=== PATIENT | female | born 1930 | race Caucasian/White ===

== ENCOUNTER 2016-11-09 06:44 | Inpatient (IN) | payer OTHER, BC ==
[~2016-11-09] VITALS: Ht 167.6 cm; Wt 55.1 kg
[~2016-11-09 06:44] MED LIST: ADVAIR 250/501 DISK IH; AMARYL2 MG PO; ASCORBIC ACID500 M3 PO; ATROVENT H200 INHALA IH; CENTRUM SILVER1 EAC3 PO; CLARITIN,ALAVAR10 MG PO; DAILY VITE1 EAC1 PO; FERROUS SULFAT325 MG PO; FLOMAX0.4 MG PO; GLUCOSAMINE &1 EAC1 PO; HIPREX1 GM PO; NEURONTIN300 MG PO; PROBIOTIC1 EAC1 PO; PROTONIX40 MG PO; QNASL8.7 GM BOTH NARES; SINGULAIR10 MG PO; VENTOLIN HFA18 GM IH; VITAMIN C500 M1 PO; VITAMIN D31000 UNIT PO
[2016-11-09 07:47] LABS: POINT-OF-CARE METER ID UU14174212
[2016-11-09 07:48] VITALS: BP 131/74
[2016-11-09 14:28] LABS: HEMATOCRIT 38.3 % (36.0-46.0); MCH 28.2 PG (29.0-34.0); MCHC 32.1 G/DL (30.0-36.0); MCV 87.8 FL (83-99); MEAN PLAT.VOLUME 10.1 uM^3 (9.5-12.4); PLATELET COUNT 296 K/uL (156-360); RBC DIS.WIDTH-CV 13.3 % (11.8-14.6); RBC DIS.WIDTH-SD 43.3 % (39-53); RED BLOOD COUNT 4.36 M/uL (3.80-5.20)
[2016-11-09 14:29] LABS: WHITE BLOOD COUNT 11.9 K/uL (4.1-10.2)
[2016-11-09 15:30] VITALS: BP 143/63
[2016-11-09] MEDS ORDERED: IPRATROPIUM BRO30 ML BOTH NARES (16:16)
[2016-11-09 19:59] VITALS: BP 126/61
[2016-11-09 23:49] VITALS: BP 124/61
[2016-11-10 04:00] VITALS: BP 137/63
[2016-11-10 06:15] LABS: HEMATOCRIT 35.4 % (36.0-46.0); MCV 86.3 FL (83-99)
[2016-11-10 06:52] LABS: ANION GAP 8 MEQ/L (2-14); CHLORIDE 98 MEQ/L (99-109); GFR ESTIMATE (CALCULATED) > 59 mL/min/; GLUCOSE 144 mg/dL (70-99); SAMPLE HEMOLYSIS CHECK 0; SAMPLE ICTERIC CHECK 0; SAMPLE LIPEMIA CHECK 0; SODIUM 132 MEQ/L (136-147); UREA NITROGEN (BUN) 10 mg/dL (9-23)
[2016-11-10 08:03] VITALS: BP 122/58
[2016-11-10 11:32] VITALS: BP 126/58
[2016-11-10 15:35] VITALS: BP 124/58
[2016-11-10 19:57] VITALS: BP 122/59
[2016-11-11 00:02] VITALS: BP 111/55
[2016-11-11 04:00] VITALS: BP 132/59
[2016-11-11 05:25] LABS: HEMATOCRIT 32.3 % (36.0-46.0); MCV 85.7 FL (83-99)
[2016-11-11 05:58] LABS: ANION GAP 4 MEQ/L (2-14); CHLORIDE 102 MEQ/L (99-109); GFR ESTIMATE (CALCULATED) > 59 mL/min/; GLUCOSE 132 mg/dL (70-99); POTASSIUM 3.9 MEQ/L (3.7-5.4); SAMPLE HEMOLYSIS CHECK 0; SAMPLE ICTERIC CHECK 0; SAMPLE LIPEMIA CHECK 0; SODIUM 135 MEQ/L (136-147); UREA NITROGEN (BUN) 8 mg/dL (9-23)
[2016-11-11] MEDS ORDERED: HYDROCODON-ACE1 EAC7 PO (08:03)
[2016-11-11] MEDS ORDERED: SENNA PLUS TAB1 EACH PO (08:03)
[2016-11-11] MEDS ORDERED: LOVENOX40 MG/0.4 SC (08:03)
[2016-11-11] MEDS ORDERED: CELECOXIB200 MG PO (08:03)
[2016-11-11 08:12] VITALS: BP 117/54
[2016-11-11 11:31] VITALS: BP 102/51
[2016-11-11 15:33] VITALS: BP 115/53
[2016-11-11] MEDS ORDERED: PERCOCET 5/31 TABLET PO (17:11)
[2016-11-11] MEDS ORDERED: LIDODERM 5% P1 PATCH TD (17:12)
[2016-11-11] MEDS ORDERED: ZOFRAN4 MG PO (17:12)
== END 2016-11-11 16:44 | DRG 470 ==
LOC: 2SOUTH 06:44 → 3WEST 12:22
PROVIDERS: Orthopaedic Surgery; Physician Assistant
PROC: 0SRD0J9 Replacement of Left Knee Joint with Synthetic Substitute, Cemented, Open Approach (ICD-10-PCS; principal; 2016-11-09)
DX: M17.12 Unilateral primary osteoarthritis, left knee (principal); J44.9 Chronic obstructive pulmonary disease, unspecified; K21.9 Gastro-esophageal reflux disease without esophagitis; M06.9 Rheumatoid arthritis, unspecified; Z88.0 Allergy status to penicillin; Z88.1 Allergy status to other antibiotic agents; Z88.3 Allergy status to other anti-infective agents
CPT/HCPCS: 73560; 80048; 82948; 85014; 85018; 85027; 93005; 94640; 94640 76; J1650; J2250; J2405; J2765; J3010; J7050

== ENCOUNTER 2016-11-11 10:23 | Inpatient (IN) | payer OTHER, BC ==
[~2016-11-11] VITALS: Ht 167.6 cm; Wt 54.3 kg
[~2016-11-11 10:23] MED LIST changes: +CELECOXIB200 MG PO; +HYDROCODON-ACE1 EAC7 PO; +IPRATROPIUM BRO30 ML BOTH NARES; +LOVENOX40 MG/0.4 SC; +SENNA PLUS TAB1 EACH PO
[2016-11-11 16:59] VITALS: BP 115/53
[2016-11-11] MEDS ORDERED: PERCOCET 5/31 TABLET PO (17:11)
[2016-11-11] MEDS ORDERED: LIDODERM 5% P1 PATCH TD (17:12)
[2016-11-11] MEDS ORDERED: ZOFRAN4 MG PO (17:12)
[2016-11-11 20:00] LABS: HEMATOCRIT 33.3 % (36.0-46.0); MCH 28.2 PG (29.0-34.0); MCHC 32.4 G/DL (30.0-36.0); MCV 86.9 FL (83-99); MEAN PLAT.VOLUME 10.4 uM^3 (9.5-12.4); PLATELET COUNT 247 K/uL (156-360); RBC DIS.WIDTH-CV 13.6 % (11.8-14.6); RBC DIS.WIDTH-SD 42.5 % (39-53); RED BLOOD COUNT 3.83 M/uL (3.80-5.20); WHITE BLOOD COUNT 8.7 K/uL (4.1-10.2)
[2016-11-11 20:20] LABS: ALKALINE PHOSPHATASE 114 IU/L (3-129); ANION GAP 5 MEQ/L (2-14); CHLORIDE 100 MEQ/L (99-109); GFR ESTIMATE (CALCULATED) > 59 mL/min/; GLUCOSE 156 mg/dL (70-99); SAMPLE HEMOLYSIS CHECK 0; SAMPLE ICTERIC CHECK 0; SAMPLE LIPEMIA CHECK 0; SODIUM 134 MEQ/L (136-147); TOTAL BILIRUBIN 0.4 MG/DL (0.0-1.0); UREA NITROGEN (BUN) 12 mg/dL (9-23)
[2016-11-12 00:19] VITALS: BP 145/65
[2016-11-12 05:41] VITALS: BP 138/60
[2016-11-13 05:40] VITALS: BP 125/58
[2016-11-13] MEDS ORDERED: MILK OF MAGNESI10 ML PO (14:14)
[2016-11-13] MEDS ORDERED: HYDROCODON-ACE1 EAC7 PO (14:14)
[2016-11-13] MEDS ORDERED: CELECOXIB200 MG PO (14:14)
[2016-11-13] MEDS ORDERED: LOVENOX40 MG/0.4 SC (14:14)
[2016-11-13 15:26] VITALS: BP 126/70
[2016-11-14 06:07] VITALS: BP 136/63
[2016-11-14 06:24] LABS: EOSINOPHIL (%) 8.1 % (0-5); EOSINOPHIL COUNT 0.5 K/uL (0-0.3); HEMATOCRIT 32.9 % (36.0-46.0); IMMATURE GRANULOCYTE (%) 0.3 % (0.0-0.7); INSTRUMENT ABS NEUTROPHIL CT 4.4 K/uL; MCH 27.7 PG (29.0-34.0); MCHC 31.6 G/DL (30.0-36.0); MCV 87.7 FL (83-99); MONOCYTE (%) 6.8 % (3-12); MONOCYTE COUNT 0.4 K/uL (0-0.8); NEUTROPHIL (%) 69.3 % (45-76); NEUTROPHIL COUNT 4.4 K/uL (1.8-6.4); RBC DIS.WIDTH-CV 14.2 % (11.8-14.6); RBC DIS.WIDTH-SD 45.7 % (39-53); RED BLOOD COUNT 3.75 M/uL (3.80-5.20); WHITE BLOOD COUNT 6.3 K/uL (4.1-10.2)
[2016-11-14 06:26] LABS: PLATELET COUNT 325 K/uL (156-360)
[2016-11-14 06:38] LABS: ANION GAP 7 MEQ/L (2-14); CHLORIDE 102 MEQ/L (99-109); GFR ESTIMATE (CALCULATED) > 59 mL/min/; POTASSIUM 4.1 MEQ/L (3.7-5.4); SAMPLE HEMOLYSIS CHECK 0; SAMPLE ICTERIC CHECK 0; SAMPLE LIPEMIA CHECK 0; SODIUM 138 MEQ/L (136-147); UREA NITROGEN (BUN) 16 mg/dL (9-23)
[2016-11-14 06:44] LABS: ALKALINE PHOSPHATASE 144 IU/L (3-129); GLUCOSE 111 mg/dL (70-99); TOTAL BILIRUBIN 0.8 MG/DL (0.0-1.0)
[2016-11-14 16:07] VITALS: BP 120/57
[2016-11-14 16:09] VITALS: BP 120/57
[2016-11-15 05:44] VITALS: BP 119/59
== END 2016-11-15 13:54 | disposition home health service (06) | DRG 561 ==
LOC: 3WEST 10:23
PROVIDERS: Psychiatry & Neurology Neurology
PROC: F07M0ZZ Range of Motion and Joint Mobility Treatment of Musculoskeletal System - Whole Body (ICD-10-PCS; principal; 2016-11-11)
DX: Z47.1 Aftercare following joint replacement surgery (principal); Z96.652 Presence of left artificial knee joint; R26.2 Difficulty in walking, not elsewhere classified; I10 Essential (primary) hypertension; J44.9 Chronic obstructive pulmonary disease, unspecified; M19.90 Unspecified osteoarthritis, unspecified site; M06.9 Rheumatoid arthritis, unspecified; M40.209 Unspecified kyphosis, site unspecified; Z88.1 Allergy status to other antibiotic agents; Z88.3 Allergy status to other anti-infective agents; Z88.0 Allergy status to penicillin
CPT/HCPCS: 80053; 85025; 85027; 93971; 94640; 94640 76; 97110 GO; 97530 GP; J1650

== ENCOUNTER 2017-08-30 22:02 | Inpatient (IN) | payer OTHER, BC ==
[~2017-08-30] VITALS: Ht 167.6 cm; Wt 54.2 kg
[~2017-08-30 22:02] MED LIST changes: +ALEVE220 MG PO; +CALCIUM 500 MG1 EACH PO; +CRANBERRY TABL1 EACH PO; +LIDODERM 5% P1 PATCH TD; +MILK OF MAGNESI10 ML PO; +PERCOCET 5/31 TABLET PO; +PROBIOTIC1 EAC2 PO; +STOOL SOFTENER100 M1 PO; +ZOFRAN4 MG PO
[2017-08-31 05:45] VITALS: BP 152/67
[2017-08-31 09:48] LABS: HEMATOCRIT 34.5 % (36.0-46.0); HEMOGLOBIN 11.1 G/DL (11.9-15.5); MCH 28.9 PG (29.0-34.0); MCHC 32.2 G/DL (30.0-36.0); MCV 89.8 FL (83-99); PLATELET COUNT 235 K/uL (156-360); RBC DIS.WIDTH-CV 13.9 % (11.8-14.6); RBC DIS.WIDTH-SD 45.4 % (39-53); RED BLOOD COUNT 3.84 M/uL (3.80-5.20); WHITE BLOOD COUNT 11.8 K/uL (4.1-10.2)
[2017-08-31 10:19] VITALS: BP 129/86
[2017-08-31 20:08] VITALS: BP 119/73
[2017-09-01 00:15] VITALS: BP 133/64
[2017-09-01 04:21] VITALS: BP 130/59
[2017-09-01 06:18] LABS: HEMATOCRIT 32.6 % (36.0-46.0); HEMOGLOBIN 10.8 G/DL (11.9-15.5); MCV 86.7 FL (83-99)
[2017-09-01 06:52] LABS: CHLORIDE 97 MEQ/L (99-109); CREATININE 0.5 MG/DL (0.6-1.3); GFR ESTIMATE (CALCULATED) > 59 mL/min/; GLUCOSE 152 mg/dL (70-99); POTASSIUM 3.9 MEQ/L (3.7-5.4); SODIUM 131 MEQ/L (136-147); UREA NITROGEN (BUN) 12 mg/dL (9-23)
[2017-09-01 08:00] VITALS: BP 139/64
[2017-09-01 12:19] VITALS: BP 129/59
[2017-09-01 16:16] VITALS: BP 109/54
[2017-09-01 20:11] VITALS: BP 116/49
[2017-09-02 00:10] VITALS: BP 108/54
[2017-09-02 04:00] VITALS: BP 110/52
[2017-09-02 05:33] LABS: HEMATOCRIT 32.5 % (36.0-46.0); HEMOGLOBIN 10.7 G/DL (11.9-15.5); MCV 86.4 FL (83-99)
[2017-09-02 05:57] LABS: CHLORIDE 102 MEQ/L (99-109); CREATININE 0.4 MG/DL (0.6-1.3); GFR ESTIMATE (CALCULATED) > 59 mL/min/; GLUCOSE 129 mg/dL (70-99); POTASSIUM 3.7 MEQ/L (3.7-5.4); SODIUM 136 MEQ/L (136-147); UREA NITROGEN (BUN) 11 mg/dL (9-23)
[2017-09-02 08:10] VITALS: BP 126/58
[2017-09-02] MEDS ORDERED: LOVENOX40 MG/0.4 SC (11:23)
[2017-09-02] MEDS ORDERED: ENDOCET 5-3251 EACH PO (11:23)
[2017-09-02 12:04] VITALS: BP 127/62
[2017-09-02] MEDS ORDERED: CELEBREX200 MG PO (17:03)
[2017-09-02] MEDS ORDERED: SENNA-DOCUSATE1 EAC1 PO (17:05)
[2017-09-02] MEDS ORDERED: PERCOCET 10/1 TABLET PO (17:06)
[2017-09-02] MEDS ORDERED: PERCOCET 5/31 TABLET PO (17:07)
[2017-09-02] MEDS ORDERED: REGLAN10 MG PO (17:08)
[2017-09-02] MEDS ORDERED: SALONPAS GEL-P1 EAC1 TD ×2 (17:10→17:11)
[2017-09-02] MEDS ORDERED: ZOFRAN4 MG PO (17:12)
== END 2017-09-02 15:30 | DRG 470 ==
LOC: ENRESERV 22:02 → 2SOUTH 08-31 05:15 → 3WEST 08-31 09:59 → 2SOUTH 08-31 10:29 → 3WEST 09-02 15:30
PROVIDERS: Orthopaedic Surgery; Physician Assistant
PROC: 0SRC0J9 Replacement of Right Knee Joint with Synthetic Substitute, Cemented, Open Approach (ICD-10-PCS; principal; 2017-08-31)
DX: M17.11 Unilateral primary osteoarthritis, right knee (principal); E87.1 Hypo-osmolality and hyponatremia; J44.9 Chronic obstructive pulmonary disease, unspecified; M06.9 Rheumatoid arthritis, unspecified; E11.43 Type 2 diabetes mellitus with diabetic autonomic (poly)neuropathy; K31.84 Gastroparesis; E78.2 Mixed hyperlipidemia; Z96.652 Presence of left artificial knee joint; Z87.440 Personal history of urinary (tract) infections
CPT/HCPCS: 73560; 80048; 85014; 85018; 85027; 85730; 94640; 94640 76; 99202; C1713; J0131; J1100; J1170; J1650; J2250; J2405; J2795; J7050

== ENCOUNTER 2017-09-02 08:20 | Inpatient (IN) | payer OTHER, BC ==
[~2017-09-02] VITALS: Ht 167.6 cm; Wt 58.7 kg
[2017-09-02] MEDS ORDERED: LOVENOX40 MG/0.4 SC (11:23)
[2017-09-02] MEDS ORDERED: ENDOCET 5-3251 EACH PO (11:23)
[2017-09-02 15:53] VITALS: BP 124/58
[2017-09-02] MEDS ORDERED: CELEBREX200 MG PO (17:03)
[2017-09-02] MEDS ORDERED: SENNA-DOCUSATE1 EAC1 PO (17:05)
[2017-09-02] MEDS ORDERED: PERCOCET 10/1 TABLET PO (17:06)
[2017-09-02] MEDS ORDERED: PERCOCET 5/31 TABLET PO (17:07)
[2017-09-02] MEDS ORDERED: REGLAN10 MG PO (17:08)
[2017-09-02] MEDS ORDERED: SALONPAS GEL-P1 EAC1 TD ×2 (17:10→17:11)
[2017-09-02] MEDS ORDERED: ZOFRAN4 MG PO (17:12)
[2017-09-03 04:49] VITALS: BP 118/56
[2017-09-03 05:44] LABS: HEMATOCRIT 31.9 % (36.0-46.0); HEMOGLOBIN 10.5 G/DL (11.9-15.5); MCH 28.9 PG (29.0-34.0); MCHC 32.9 G/DL (30.0-36.0); MCV 87.9 FL (83-99); PLATELET COUNT 258 K/uL (156-360); RBC DIS.WIDTH-CV 14.1 % (11.8-14.6); RBC DIS.WIDTH-SD 45.4 % (39-53); RED BLOOD COUNT 3.63 M/uL (3.80-5.20); WHITE BLOOD COUNT 7.1 K/uL (4.1-10.2)
[2017-09-03 06:14] LABS: ALBUMIN 2.8 G/DL (3.2-4.8); ALKALINE PHOSPHATASE 115 IU/L (3-129); ALT (GPT) 27 IU/L (3-49); AST (GOT) 19 IU/L (2-34); CHLORIDE 103 MEQ/L (99-109); CREATININE 0.5 MG/DL (0.6-1.3); GFR ESTIMATE (CALCULATED) > 59 mL/min/; GLUCOSE 134 mg/dL (70-99); POTASSIUM 3.8 MEQ/L (3.7-5.4); SODIUM 140 MEQ/L (136-147); TOTAL BILIRUBIN 0.5 MG/DL (0.0-1.0); TOTAL PROTEIN 5.4 G/DL (6.4-8.3); UREA NITROGEN (BUN) 13 mg/dL (9-23)
[2017-09-03 15:34] VITALS: BP 123/57
[2017-09-04 06:06] VITALS: BP 133/63
[2017-09-04 15:00] VITALS: BP 121/58
[2017-09-05 04:17] VITALS: BP 130/59
[2017-09-05 15:11] VITALS: BP 136/63
[2017-09-06 05:24] VITALS: BP 133/60
[2017-09-06 05:53] LABS: HEMATOCRIT 34.5 % (36.0-46.0); HEMOGLOBIN 11.2 G/DL (11.9-15.5); MCH 28.4 PG (29.0-34.0); MCHC 32.5 G/DL (30.0-36.0); MCV 87.3 FL (83-99); PLATELET COUNT 328 K/uL (156-360); RBC DIS.WIDTH-CV 14.1 % (11.8-14.6); RBC DIS.WIDTH-SD 45.6 % (39-53); RED BLOOD COUNT 3.95 M/uL (3.80-5.20)
[2017-09-06 07:11] LABS: ALKALINE PHOSPHATASE 131 IU/L (3-129); ALT (GPT) 26 IU/L (3-49); AST (GOT) 23 IU/L (2-34); CHLORIDE 102 MEQ/L (99-109); CREATININE 0.5 MG/DL (0.6-1.3); GFR ESTIMATE (CALCULATED) > 59 mL/min/; GLUCOSE 122 mg/dL (70-99); POTASSIUM 4.5 MEQ/L (3.7-5.4); SODIUM 139 MEQ/L (136-147); TOTAL BILIRUBIN 0.5 MG/DL (0.0-1.0); TOTAL PROTEIN 5.7 G/DL (6.4-8.3); UREA NITROGEN (BUN) 15 mg/dL (9-23)
[2017-09-06 15:00] VITALS: BP 138/62
[2017-09-07 05:39] VITALS: BP 141/65
[2017-09-07] MEDS ORDERED: CELEBREX200 MG PO (08:57)
== END 2017-09-07 11:14 | disposition home health service (06) | DRG 560 ==
LOC: 3WEST 08:20
PROVIDERS: Physical Medicine & Rehabilitation Pain Medicine
PROC: F07M0ZZ Range of Motion and Joint Mobility Treatment of Musculoskeletal System - Whole Body (ICD-10-PCS; principal; 2017-09-02)
DX: Z47.1 Aftercare following joint replacement surgery (principal); R26.2 Difficulty in walking, not elsewhere classified; G89.18 Other acute postprocedural pain; D62 Acute posthemorrhagic anemia; I10 Essential (primary) hypertension; J44.9 Chronic obstructive pulmonary disease, unspecified; M06.9 Rheumatoid arthritis, unspecified; M40.209 Unspecified kyphosis, site unspecified; Z96.653 Presence of artificial knee joint, bilateral; Z88.0 Allergy status to penicillin; Z88.1 Allergy status to other antibiotic agents
CPT/HCPCS: 80053; 85027; 94640; 94640 76; 97110 GO; 97530 GP; 99202; J1650

== ENCOUNTER → 2018-03-28 | Outpatient (CLI) | payer OTHER, BC ==
[~2018-03-28] MED LIST changes: +CELEBREX200 MG PO; +ENDOCET 5-3251 EACH PO; +PERCOCET 10/1 TABLET PO; +REGLAN10 MG PO; +SALONPAS GEL-P1 EAC1 TD; +SENNA-DOCUSATE1 EAC1 PO
== END | disposition home or self-care (01) ==
LOC: NUC 08:44
DX: M41.85 Other forms of scoliosis, thoracolumbar region (principal); M47.896 Other spondylosis, lumbar region; M19.032 Primary osteoarthritis, left wrist; M19.031 Primary osteoarthritis, right wrist; R93.7 Abnormal findings on diagnostic imaging of other parts of musculoskeletal system; Z96.653 Presence of artificial knee joint, bilateral; Z85.828 Personal history of other malignant neoplasm of skin
CPT/HCPCS: 78315; A9503